=== PATIENT | female | born 2000 | race Caucasian/White ===

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

== ENCOUNTER 2024-08-26 11:16 | Emergency (ER) | payer SELFPAY ==
[2024-08-26 11:22] VITALS: BP 134/92; PULSE 92; RESP 16; TEMP 36.2; O2SAT 99
[2024-08-26 12:31] LABS: EDCOVIDSCREEN Negative (Negative); EDINFLUASCREEN Positive (Negative); EDINFLUBSCREEN Negative (Negative)
--- NOTE | 2024-08-26 12:34 | ED_ITS ---
HPI - General Adult General Chief complaint: Upper Respiratory Infection Stated complaint: cough / sore throat / congestion / ear pain History of Present Illness HPI narrative: Marcia Stoddard is a 24 y/o female with complaints of upper respiratory infection symptoms that started 3 days ago. she complains of cold congestion sore throat body aches and not feeling well. She states that her last fever was 2 days ago. She states that she has been taking irox-dig-dqtqxxc medications like Mucinex DayQuil NyQuil but still not feeling any better. Related Data Home Medications ?Medication ?Instructions ?Recorded ?Confirmed ?Last Taken ?Type norethindrone 1.5 mg-ethinyl 1 tablet PO DAILY 07/20/23 Unknown History estradiol 30 mcg(21)/iron 75 mg(7) tablet (June FE .12/20 (28)) Allergies Allergy/AdvReac Type Severity Reaction Status Date / Time No Known Allergies Allergy Verified 08/26/24 12:15 Review of Systems Review of Systems: All systems reviewed & are unremarkable except as noted in HPI and below PMFSH Past Medical History Medical History Gastroesophageal reflux Marijuana use, episodic Depression Obesity, morbid, BMI 40.0-49.9 Patient denies medical problems Family History Family History Other Cerebrovascular accident Diabetes mellitus Family history of coronary artery disease Family history of glaucoma Family history of hypercholesterolemia Hypertension Malignant neoplasm of prostate Social History Social History Smoking status: Never smoker Second hand tobacco smoke exposure: No Alcohol intake: never Substance use: never Substance use type: does not use Lack of Transportation: No Lack of Food: Never True Current Housing: I Have Housing Concerned About Future Housing: No Difficulty Paying Gas/Electric Bills: No Difficulty Paying for Meds: No Currently Unemployed: Decline to Answer Education: High School Diploma/GED Difficulty w/ Childcare or Family Care: No Living arrangements: with family Gender identity (if verbalized by the patient): Female Spiritual care concerns: No Agree to blood products: Yes Exam Narrative: GENERAL: well-nourished, and in no acute distress, appears to not be feeling well. HEAD: Normocephalic, atraumatic. EYES: PERRLA and EOMI. ENT: + rhinorrhea. Mucous membranes moist. Oropharynx without tonsillar hypertrophy exudate or other lesions. Bilateral TMs pearly poole nonbulging NECK: Supple. No adenopathy or masses. No carotid bruits or JVD CHEST: Clear to auscultation. No respiratory distress. No wheezes rales or rhonchi HEART: Regular rate and rhythm. No murmur heard. Normal peripheral pulses. EXTREMITIES: Normal range of motion. No edema. SKIN: Warm, dry, no rash. NEURO: No focal deficits. Alert and oriented x3. PSYCH: Normal mood and affect. Course Course Level of Care: Express Care Visit Vital Signs Vital signs: Vital Signs Temperature 36.2 C L 08/26/24 11:22 Pulse Rate 92 08/26/24 11:22 Respiratory Rate 16 08/26/24 11:22 Blood Pressure 134/92 H 08/26/24 11:22 Pulse Oximetry 99 08/26/24 11:22 Oxygen Delivery Room Air 08/26/24 11:22 Temperature 36.2 C L 08/26/24 11:22 Pulse Rate 92 08/26/24 11:22 Respiratory Rate 16 08/26/24 11:22 Blood Pressure 134/92 H 08/26/24 11:22 Pulse Oximetry 99 08/26/24 11:22 Oxygen Delivery Room Air 08/26/24 11:22 Medical Decision Making MDM Narrative Medical decision making narrative: This 24 year old patient presents with symptoms most suggestive of viral upper respiratory tract infection. Lungs are clear bilaterally without any respiratory distress or accessory muscle use. she tested positive for Influenza A Encouraged patient to continue to push oral hydration she may continue to take the cmfj-xsd-cokfmyl cold medication as she has. She does not need any antibiotics at this time. Patient discharged home in stable condition with expectant management. Return precautions were provided. Procedures: Pulse oximetry interpretation - not hypoxic. Review of medical records. DISPOSITION: Discharged home in stable condition. IMPRESSION: Acute upper respiratory tract infection, likely viral. Influenza a Vital Signs Vital Signs: Vital Signs Temperature 36.2 C L 08/26/24 11:22 Pulse Rate 92 08/26/24 11:22 Respiratory Rate 16 08/26/24 11:22 Blood Pressure 134/92 H 08/26/24 11:22 Pulse Oximetry 99 08/26/24 11:22 Oxygen Delivery Room Air 08/26/24 11:22 Temperature 36.2 C L 08/26/24 11:22 Pulse Rate 92 08/26/24 11:22 Respiratory Rate 16 08/26/24 11:22 Blood Pressure 134/92 H 08/26/24 11:22 Pulse Oximetry 99 08/26/24 11:22 Oxygen Delivery Room Air 08/26/24 11:22 vitals reviewed by me. Lab Data Lab results reviewed: Yes I reviewed the patient's lab results. Labs: Lab Results 08/26/24 Range/Units 11:42 POC Influenza A Ag Positive (Negative) POC Influenza B Ag Negative (Negative) POC SARS CoV-2 Ag Negative (Negative) POC Grp A Strep Screen Negative (Negative) Discharge Plan Discharge Clinical Impression: Influenza A Patient Disposition: Home, Self-Care Condition: Stable Instructions: Antibiotic Form Additional Instructions: continue to push hydration drinking plenty of fluids such as water, Gatorade, popsicles continue to take the bszm-fxt-ngloqhc cold medications for his symptoms follow-up with your primary care doctor in the next 3-5 days to ensure you are improving take Tylenol Motrin as needed for fever body aches if you develop any worsening symptoms such as shortness of breath, difficulty breathing chest pain proceed the ER. Patient Language: Cymraes Prescriptions: No Action norethindrone-e.estradiol-iron [ ()] 1.5 mg-30 mcg (21)/75 mg (7) tablet 1 tablet PO DAILY venlafaxine 75 mg capsule,extended release 24hr 75 mg PO DAILY Qty: 30 4RF Follow-up/Referrals: Malaika Brown MD [Primary Care Provider] - Stand Alone Forms: Work/School Release IP Time of Disposition: 12:43
--- OUTSIDE RECORDS SUMMARY | 2024-08-26 12:36 | XMS_ITS | Clinical Summary ---
Author Organization [facility] Address [address] [place] [address] Care Team Providers Care Veneer Sander Name Role Phone Malaika Brown MD Primary Care Provider Malaika Brown MD Unavailable Epifanio Luz PA-C Unavailable [phone] Source Comments [facility],non-owned Affiliates and Associated Physician Practices is amultiple site organization consisting of ambulatory clinics and hospital sitesin [place], [place], [place] and [place]. This disclosure is being madepursuant to the Care Everywhere program and may not contain all information available regarding this patient. Last updated 18.[facility] Allergies No known active allergies Medications * Be aware that medications may not be up to date on this document. Alwaysverify current medications with the patient. Medication Sig Dispensed Refills Start Date End Date Status fluticasone hfa 44 (FLOVENT HFA) 44 MCG/ACT inhaler Inhale 2 Puffs by mouth 2 times daily. Active montelukast (SINGULAIR) 4 MG chew tablet Take 4 mg by mouth at bedtime. Active fexofenadine (NATE) 30 MG tablet Take 30 mg by mouth at bedtime. Active ALBUTEROL IN Inhale 2 Puffs by mouth 4 times daily as needed. Active Active Problems Problem Noted Date Diagnosed Date Closed nondisplaced fracture of neck of left rad ius 04/06/2020 Family History Medical History Relation Name Comments Hypercholesterolemia Maternal Grandmother Hypercholesterolemia Mother Scoliosis Mother Hypertension Paternal Grandfather Allergy (Severe) Neg Hx Anesthesia Reaction Neg Hx Arrhythmia Neg Hx Asthma Neg Hx Broken Bones Neg Hx Cancer Neg Hx Clotting Disorder Neg Hx Collagen Disease Neg Hx Diabetes Neg Hx Dislocations Neg Hx AR Neg Hx Marfan Syndrome Neg Hx Osteoporosis Neg Hx Rheumatological Disease Neg Hx Severe Sprains Neg Hx Sickle Cell Anemia Neg Hx Sudd. <30 Neg Hx Relation Name Status Comments Maternal Grandmother Mother Paternal Grandfather Social History Tobacco Use Types Packs/Day Years Used Date Smoking Tobacco: Never Alcohol Use Standard Drinks/Week Comments No 0 (1 standard drink = 0.6 oz pur e alcohol) Sex and Gender Information Value Date Recorded Sex Assigned at Not on file Gender Identity Not on file Sexual Orientation Not on file Last Filed Vital Signs Vital Sign Reading Time Taken Comments Blood Pressure 105/70 03/31/2020 2:10 PM CDT Pulse - - Temperature - - Respiratory Rate - - Oxygen Saturation - - Inhaled Oxygen Concentration - - Weight 97.3 kg (214 lb 8.1 oz) 03/31/2020 2:10 P M CDT Height 159.5 cm (5' 2.8 ) 03/31/2020 2:10 PM CDT Body Mass Index 38.25 03/31/2020 2:10 PM CDT Plan of Treatment Health Maintenance Due Date Last Done Comments PAP SMEAR 2002 HIV SCREENING 2017 HPV VACCINE (1 - 3-dose series) 2017 CHLAMYDIA/GONORRHEA SCREENING 2018 MENINGOCOCCAL (Group B) VACC INE (1 of 2 - Standard) 2018 HEPATITIS C SCREENING 04/04/2020 DTAP/TDAP/TD VACCINES (1 - Tdap) 2021 HEPATITIS B VACCINE (1 of 3 - 19+ 3-dose series) 2021 COVID-19 VACCINE (1 - 2023-2 5 season) 2024 INFLUENZA VACCINE (#1) 2024 DEPRESSION SCREENING 07/24/2024 ZOSTER VACCINE (1 of 2) 2052 HIB VACCINE Aged Out No longer eligi ble based on patient's age to complete this topic MENINGOCOCCAL VACCINE Aged Out No theodore carla eligible based on patient's age to complete this topic PNEUMOCOCCAL VACCINE Aged Out No long er eligible based on patient's age to complete this topic Care Teams Veneer Sander Relationship Specialty Start Date End Date Malaika Brown MD [address] [place] [address] PCP - General 04/21/20 Malaika Brown MD [address] [place] [address] Family Medicine 04/21/20 Epifanio Luz PA-C [address] [place] [address] Orthopedic 04/23/20
--- OUTSIDE RECORDS SUMMARY | 2024-08-26 12:36 | XMS_ITS | Referral Summary ---
Author Organization [facility] Address [address] [place] [address] Care Team Providers Care Dermatology Teacher Name Role Phone Malaika Brown MD Primary Care Provider [phone] Malaika Brown MD Unavailable Epifanio Luz PA-C Unavailable [phone] Source Comments [facility],non-owned Affiliates and Associated Physician Practices is amultiple site organization consisting of ambulatory clinics and hospital sitesin [place], [place], [place] and [place]. This disclosure is being madepursuant to the Care Everywhere program and may not contain all information available regarding this patient. Last updated 18.[facility] Allergies No known active allergies Medications * [...] of neck of left rad ius 04/06/2020 Social History Tobacco Use Types Packs/Day Years [...] 03/31/2020 2:10 PM CDT Plan of Treatment Not on file Care Teams Dermatology Teacher Relationship Specialty Start Date End Date Malaika Brown MD [address] [place] [address] PCP - General 04/21/20 Malaika Brown MD [address] [place] [address] Family Medicine 04/21/20 Epifanio Luz PA-C [address] [place] [address] Orthopedic 04/23/20
--- OUTSIDE RECORDS SUMMARY | 2024-08-26 12:36 | XMS_ITS | Patient Health Summary ---
Author Organization [facility] Address [address] [place] [address] Care Team Providers Care [employer]ull[employer] Machine Name Role Phone Malaika Brown MD Primary Care Provider [phone] Malaika Brown MD Unavailable Epifanio Luz PA-C Unavailable [phone] Note from [facility],non-owned Affiliates and Associated Physician Practices is amultiple site organization consisting of ambulatory clinics and hospital sitesin [place], [place], [place]. This disclosure is being madepursuant to the Care Everywhere program and may not contain all information available regarding this patient. Last updated 18.[facility] Allergies No known active allergies Medications * Be aware that medications may not be up to date on this document. Alwaysverify current medications with the patient. * fluticasone hfa 44 (FLOVENT HFA) 44 MCG/ACT inhaler Inhale 2 Puffs by mouth 2 times daily. * montelukast (SINGULAIR) 4 MG chew tablet Take 4 mg by mouth at bedtime. * fexofenadine (NATE) 30 MG tablet Take 30 mg by mouth at bedtime. * ALBUTEROL IN Inhale 2 Puffs by mouth 4 times daily as needed. Active Problems Problem Noted Date Diagnosed Date [...] Mass Index 38.25 03/31/2020 2:10 PM CDT Procedures * XR ELBOW LEFT 3VW OR MORE(Performed 04/23/2020) Performed for Closed nondisplaced fracture of neck of left radius, initial encounter * IMAGING/RADIOLOGY/XRAY RESULTS ORDER(Performed 05/24/2010) Results * XR ELBOW LEFT 3VW OR MORE (04/23/2020 1:05 PM CDT) Anatomical Region Laterality Modality Upper Extremity Radiographic Reva ging 04/23/2020 12:5 4 PM CDT Impressions 04/23/2020 2:01 PM CDT 1. ??Joint effusion, no dislocation 2. ??Possible healing nondisplaced radial neck fracture as above. Reading Radiologist: Filemon Gray on 04/23/2020 at 2:01 PM Narrative 04/23/2020 2:01 PM CDT INDICATION: Fracture COMPARISON: None available. TECHNIQUE: Frontal, oblique and lateral views of the left elbow. FINDINGS: Joint effusion. No dislocation. No discrete capitellar osteochondral changes. There is subtle sclerosis with very slight cortical irregularity involving the antecubital/volar surface of the radial neck on the lateral view. Otherwise no definitive acute fracture line identified. Apparent periosteal smooth reaction along the proximal medial ulna on the AP view favored to be summation of soft tissue shadows No radiopaque foreign body Procedure Note Filemon Gray MD - 04/23/2020 INDICATION: Fracture COMPARISON: None available. TECHNIQUE: Frontal, oblique and lateral views of the left elbow. FINDINGS: Joint effusion. No dislocation. No discrete capitellar osteochondralchanges. There is subtle sclerosis with very slight cortical irregularity involvingthe antecubital/volar surface of the radial neck on the lateral view.Otherwise no definitive acute fracture line identified. Apparent periosteal smooth reaction along the proximal medial ulna on theAP view favored to be summation of soft tissue shadows No radiopaque foreign body IMPRESSION 1. Joint effusion, no dislocation 2. Possible healing nondisplaced radial neck fracture as above. Reading Radiologist: Filemon Gray on 04/23/2020 at 2:01 PM [facility] RDERABLES * IMAGING/RADIOLOGY/XRAY RESULTS ORDER (05/24/2010 1:23 PM CDT) Anatomical Region Laterality Modality Other Narrative Procedure Note Document, Scanned - 05/21/2010 2:13 PM CDT Scanned Document IMAGING Care Teams [employer] Machine Relationship Specialty Start Date End Date Malaika Brown MD [address] [place] [address] PCP - General 04/21/20 Malaika Brown MD [address] [place] [address] Family Medicine 04/21/20 Epifanio Luz PA-C [address] [place] [id number] Orthopedic 04/23/20
[2024-08-26 12:38] LABS: EDSTREPNEGPOS1 Negative (Negative)
== END 2024-08-26 12:46 | disposition home or self-care (01) ==
PROVIDERS: Emergency Provider Nurse Practitioner Family; PCP Family Medicine
DX: J10.1 Influenza due to other identified influenza virus with other respiratory manifestations (principal); Z20.822 Contact with and (suspected) exposure to COVID-19; K21.9 Gastro-esophageal reflux disease without esophagitis; E66.01 Morbid (severe) obesity due to excess calories
CPT/HCPCS: 87081; 87426; 87804; 87880; 99213; G0463